=== PATIENT | female | born 1955 | race Caucasian/White ===

== ENCOUNTER 2018-02-07 09:58 | Emergency (ER) | payer OTHER ==
--- NOTE | 2018-02-07 12:04 | ED ---
Headache - HPI Summary HPI Summary: This patient is a 62 year old female presenting to [facility] accompanied by with a chief complaint of headache since 2 days ago. Patient states she recently upped her dosage of Losartan. She states that since, 2 days ago, she noticed a headache building and it worsened over the past few days. The pain is described as a pressure and is located in her jaw, ear, and sinus. This morning , patient states she felt something crackling and felt relief after. The headache moved to the back of her head after. The pain is rated 10/10 in severity this morning and 1/10 currently. Symptoms aggravated by nothing. Symptoms alleviated by lying supine. The patient treated the sx with Tylenol to intermittent relief. Patient denies nausea, vomiting, diarrhea, chest pain, SOB , toothache. - History Of Current Complaint Chief Complaint: EDHeadache Stated Complaint: HEADACHE Time Seen by Provider: 02/07/18 11:50 Hx Obtained From: Patient Onset/Duration: Gradual Onset, Started days ago - 2, Still Present Currently Pain Is: Current Pain Scale(0-10)= - 1, Mild Timing: Intermittent, Lasting: Character: Pressure Location of Headache: Occipital, Other: - left facial Aggravating Factor: Nothing Allevating Factors: Position Change - supine Associated Signs And Symptoms: Negative - nausea, vomiting, diarrhea, chest pain , SOB, toothache - Allergies/Home Medications Allergies/Adverse Reactions: Allergies Allergy/AdvReac Type Severity Reaction Status Date / Time Sulfa (Sulfonamide Allergy Hives Verified 02/07/18 10:05 Antibiotics) Home Medications: Home Medications Calcium Carbonate [Calcium] 500 mg PO DAILY 02/07/18 [History Confirmed 02/07/18 ] Cholecalciferol TAB* [Vitamin D TAB*] 4,000 units PO DAILY 02/07/18 [History Confirmed 02/07/18] Levothyroxine TAB* [Synthroid TAB*] 112 mcg PO DAILY 02/07/18 [History Confirmed 02/07/18] Losartan TAB* [Cozaar TAB*] 50 mg PO DAILY 02/07/18 [History Confirmed 02/07/18] metFORMIN* [Glucophage 500 MG TAB *] 500 mg PO DAILY 02/07/18 [History Confirmed 02/07/18] PMH/Surg Hx/FS Hx/Imm Hx Previously Healthy: Yes Opthamlomology History: Denies: Hx Legally Blind EENT History: Denies: Hx Deafness Neurological History: Denies: Hx Headaches Infectious Disease History: No Infectious Disease History: Denies: Traveled Outside the [place] in Last 30 Days - Family History Known Family History: Positive: Hypertension - Social History Lives: With Family Alcohol Use: Daily Alcohol Amount: wine Hx Substance Use: No Substance Use Type: Reports: None Hx Tobacco Use: Yes Smoking Status (MU): Former Smoker Review of Systems Negative: Fever Negative: Dental Pain Negative: Chest Pain Negative: Shortness Of Breath Negative: Vomiting, Diarrhea, Nausea All Other Systems Reviewed And Are Negative: Yes Physical Exam - Summary Physical Exam Summary: General: well-appearing, no pain distress Skin: warm, color reflects adequate perfusion, dry Head: normal Eyes: EOMI, NICHOLE ENT: normal Neck: supple, nontender Respiratory: CTA, breath sounds present Cardiovascular: RRR Abdomen: soft, nontender Bowel: present Musculoskeletal: normal, strength/ROM intact Neurological: sensory/motor intact, A&O x3 Psychological: affect/mood appropriate Triage Information Reviewed: Yes Vital Signs On Initial Exam: Initial Vitals Temp Pulse Resp BP Pulse Ox 97.3 F 68 16 152/74 98 02/07/18 10:06 02/07/18 10:06 02/07/18 10:06 02/07/18 10:06 02/07/18 10:06 Vital Signs Reviewed: Yes Diagnostics - Vital Signs Vital Signs Temp Pulse Resp BP Pulse Ox 02/07/18 10:06 97.3 F 68 16 152/74 98 - Laboratory Result Diagrams: 02/07/18 13:12 02/07/18 13:12 Lab Statement: Any lab studies that have been ordered have been reviewed, and results considered in the medical decision making process. - CT CT Brain CT Interpretation: No Acute Changes - CT Brain reveals, per radiologist, IMPRESSION: Negative unenhanced Head CT for age. ED physician has reviewed this radiology report. CT Interpretation Completed By: Radiologist CT Head CT Interpretation: No Acute Changes - CT Head reveals, per radiologist, NECK ANGIOGRAM IMPRESSION: Negative for carotid stenosis. HEAD ANGIOGRAM IMPRESSION : Normal variation without pathologic finding of the intracranial arterial vasculature. ED physician has reviewed this radiology report. CT Interpretation Completed By: Radiologist CT Maxillofacial CT Interpretation: No Acute Changes - CT Maxillofacial reveals, per radiologist , Negative unenhanced Maxillofacial CT. ED physician has reviewed this radiology report. CT Interpretation Completed By: Radiologist Headache Course/Dx - Course Course Of Treatment: This patient is a 62 year old female presenting to [facility] accompanied by with a chief complaint of headache since [address] Brain, CTA Head, CT Maxillofacial taken and reviewed. Bloodwork Obtained. Urinalysis Obtained. Test results with no significant abnormalities. In the ED course the patient was given Iohexol 80mL IV x2. Patient will be discharged with a prescription for Augmentin. Patient is advised to follow up with PCP. The patient is agreeable with this plan. DISCUSSED RESULTS WITH THE PATIENT AND HER . THE PATIENT REPORTS A "BUBBLING" SENSATION WHICH THEN IMPROVES THE MARTINEZ PAIN WHICH IMPLIES SINUSITIS MAY BE THE CAUSE OF THE MARTINEZ. WILL RX ABX; F/U PMD; RECHECK SOONER IF WORSE. - Diagnoses Provider Diagnoses: Headache, Sinusitis Discharge - Sign-Out/Discharge Documenting (check all that apply): Patient Departure - Discharge Plan Condition: Stable Disposition: HOME Prescriptions: Amoxicillin/Clavulanate TAB* [Augmentin TAB 875*] 875 mg PO BID #20 tab Patient Education Materials: Sinusitis (ED), Acute Headache (ED) Referrals: [facility] [Outside] Additional Instructions: FOLLOW UP WITH YOUR DOCTOR IF NOT COMPLETELY IMPROVED. GET RECHECKED FOR ANY WORSENING OF YOUR CONDITION OR QUESTIONS OR CONCERNS. - Billing Disposition and Condition Condition: STABLE Disposition: Home - Attestation Statements Document Initiated by Ganesh: Yes Documenting Scribe: Ann Owusu Provider For Whom Ganesh is Documenting (Include Credential): Nathan Kimble MD Scribe Attestation: Ann Geller scribed for Nathan Kimble MD on 02/07/18 at 1712. Scribe Documentation Reviewed: Yes Provider Attestation: The documentation as recorded by the Ann sullivan accurately reflects the service I personally performed and the decisions made by me, Nathan Kimble MD
[2018-02-07 13:18] LABS: ABS Basophils 0 10^3/ul (0-0.2); ABS Eosinophils 0 10^3/ul (0-0.6); ABS Lymphocytes 1.2 10^3/ul (1.0-4.8); ABS Monocytes 0.4 10^3/ul (0-0.8); ABS Neutrophils 2.7 10^3/ul (1.5-7.7); ABS Nucleated RBC 0 10^3/ul; Eosinophil % 0.7 % (0-6); Hematocrit 42 % (35-47); Hemoglobin 14.2 g/dl (12.0-16.0); Lymphocyte % 28.1 % (25-47); Mean Corpuscular HGB Conc 34 g/dl (31-36); Mean Corpuscular Hemoglobin 30 pg (27-31); Mean Corpuscular Volume 89 fL (80-97); Mean Platelet Volume 7.3 um3 (7.4-10.4); Nucleated Red Blood Cells % 0.1; Platelet Count 241 10^3/ul (150-450); Red Cell Distribution Width 14 % (10.5-15); White Blood Count 4.4 10^3/ul (3.5-10.8)
[2018-02-07 13:27] LABS: INR 0.9 (0.77-1.02)
[2018-02-07 13:36] LABS: EGFR Non-African American 68.7 (>60)
[2018-02-07] MEDS ORDERED: Iohexol 350* (CONTRAST) 500 ML MDV IV ONE (13:42)
[2018-02-07] MEDS ORDERED: Iodixanol 320 (CONTRAST) 100 ML SDV IV ONE (13:42)
--- NOTE | 2018-02-07 14:29 | RAD ---
Indication: LEFT neck, facial, and occipital region pain. Headache. Comparison: No relevant prior exams available on the [facility] PACS for comparison. Technique: Noncontrast CT vertex of skull through foramen magnum. Report: The sulci, ventricles, and basal cisterns are normal for age. [place] matter white matter differentiation is preserved without evidence for edema. No intra or extra axial hemorrhage, mass, or fluid collection detected. Unremarkable visualized orbital contents. Indolent thickening of the inner table of the frontal bone without concern. No suspicious calvarial or skull base lesions evident. Unremarkable scalp. The visualized paranasal sinuses and mastoid air spaces are clear. IMPRESSION: #. Negative unenhanced head CT for age.
--- NOTE | 2018-02-07 14:33 | RAD ---
INDICATION: LEFT neck, facial, and occipital pain. COMPARISON: No relevant prior exams available on the [facility] PACS for comparison. TECHNIQUE: Multidetector CT base of the skull through mandible without contrast. Multiplanar reformation. REPORT: Artifact from dental amalgam at the level of the jaws. The orbital and maxillary sinus margins, zygomatic arches, lamina papyracea, base of the maxilla, pterygoid plates, and nasal bones are intact. The mandible is intact. Normal temporal mandibular joint alignment. No soft tissue edema or loculated fluid collection evident. Negative for lymphadenopathy within the [id number]. Unremarkable orbital contents. Clear paranasal sinuses. 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 Clear partially visualized mastoid air spaces. IMPRESSION: #. Negative unenhanced maxillofacial CT.
--- NOTE | 2018-02-07 14:43 | RAD ---
INDICATION: LEFT neck, facial, and occipital pain. COMPARISON: Noncontrast head CT of the same date. TECHNIQUE: Multidetector CT images were obtained from the aortic arch to the vertex of the head with 80 mL Visipaque 320 IV contrast. Arterial phase of enhancement. Multiplanar reformation including maximum intensity projection. 3-D arterial volume rendering. Stenosis estimations based on denominator of distal arterial diameter. NECK ANGIOGRAM REPORT: Variant common origin of the LEFT common carotid and RIGHT brachiocephalic arteries from the aortic arch. Negative for ostial stenosis. Unremarkable patent RIGHT common and internal carotid arteries. Unremarkable patent LEFT common and internal carotid arteries. Patent bilateral external carotid arteries. Patent RIGHT dominant and variant LEFT diminutive vertebral arteries with the LEFT vertebral artery terminating in the LEFT posterior inferior cerebellar artery. Multilevel degenerative spondylosis and less prominent facet joint osteoarthritis. At C4-C5 there is advanced disc space narrowing and 3 mm retrolisthesis. Resulting moderate acquired central canal stenosis. Uncinate process spurring results in moderately severe bilateral foraminal stenosis. At C5-C6 there is moderately severe disc space narrowing. Dorsal disc osteophyte complex results in mild acquired central canal stenosis. Uncinate process spurring results in moderately severe bilateral foraminal stenosis. NECK ANGIOGRAM IMPRESSION: #. Negative for carotid stenosis. HEAD ANGIOGRAM REPORT: Unremarkable intracranial internal carotid arteries, M1 and M2 segments of the middle cerebral arteries and A1 and A2 segments of the anterior cerebral arteries. No definitive anterior communicating artery visualized. Diminutive basilar artery supplies the cerebellar arteries. Patent posterior cerebral arteries are supplied by posterior communicating arteries; origin variant. No intracranial aneurysm or vascular malformation evident. Normal opacification of the dominant dural venous sinuses. HEAD ANGIOGRAM IMPRESSION: Normal variation without pathologic finding of the intracranial arterial vasculature. CPT II: CPT II Codes: 3100F
[2018-02-07 15:24] VITALS: BP 151/69
== END 2018-02-07 15:22 | disposition home or self-care (01) ==
LOC: ED 09:58
DX: R51 Headache (principal); J32.9 Chronic sinusitis, unspecified; Z88.2 Allergy status to sulfonamides; Z87.891 Personal history of nicotine dependence
CPT/HCPCS: 36415; 70450; 70486; 70496; 70498; 80053; 84443; 85025; 85610; 85730; 86140; 99283; Q9967